=== PATIENT | male | born 1945 | race Caucasian/White ===

== ENCOUNTER 2017-10-04 01:50 | Observation (INO) ==
[2017-10-04] MEDS ORDERED: Sodium Chlor 0.9% Inj 500 ML IV.SIG ONE ×2 (03:01→03:25)
[2017-10-04] MEDS ORDERED: Morphine Inj 4 MG/ML Vial IV.PUSH ONE ×2 (03:01→03:23)
--- NOTE | 2017-10-04 03:04 | ED ---
HPI General Chief Complaint: Chest Pain Stated Complaint: Cardiac Complaint Time Seen by Provider: 10/04/17 02:38 Source: patient Mode of arrival: ambulatory Limitations: no limitations History of Present Illness HPI narrative: 72-year-old male presents to the emergency department by private transportation for complaint of 2 days of retrosternal chest pain that radiates into his neck that is similar to indigestion. Patient states he has had these symptoms before associated with a myocardial infarction and bypass surgery. Patient underwent CABG March 2017. Patient states over the past several nights she has been having intermittent diaphoresis in the past 2 days has had retrosternal chest pain that feels like indigestion 10/10 intensity radiating to his neck with associated episodes of shortness of breath nausea and diaphoresis. Presently patient denies any shortness of breath sweats or nausea however does complain of 10/10 chest pain. Patient takes aspirin daily takes no other blood thinning agents and is on multiple medications for blood pressure management dyslipidemia and antianginal medications. Diabetes as well as antianginal medications. Patient is unable to identify exacerbating or alleviating factors. MD complaint: chest pain Complete Quality Measures for STEMI Alert Patients STEMI Alert: No Onset (ago): day(s) Duration: constant Onset: during rest, during exertion and awoke with symptoms Pain location: substernal Severity: similar to previous episodes Severity scale (1-10): 10 Quality: tightness and other ("indigestion") Pain radiation: neck Relieving factors: nothing Exacerbating factors: nothing Associated symptoms: nausea, diaphoresis and dyspnea Treatments prior to arrival chest pain: none Related Data Home Medications Medication Instructions Recorded Confirmed amlodipine 5 mg PO DAILY 10/04/17 10/04/17 aspirin 81 mg PO DAILY 10/04/17 10/04/17 glimepiride 4 mg PO QAM 10/04/17 10/04/17 lisinopril 40 mg PO DAILY 10/04/17 10/04/17 metformin 1,000 mg PO BID 10/04/17 10/04/17 metoprolol tartrate 50 mg PO BID 10/04/17 10/04/17 Allergies Allergy/AdvReac Type Severity Reaction Status Date / Time No Known Allergies Allergy Verified 10/04/17 02:40 Review of Systems ROS: all other systems reviewed are negative PMFSH History History Provided By: Patient Medical History Medical History Diabetes (Acute) Hernia (Acute) Hypertension (Acute) Neuropathy (Acute) Surgical History Surgical History Hx of CABG (Acute) Social History Social History Second Hand Smoke Exposure: No Smoking Status: Never smoker How Often Do You Have a Drink Containing Alcohol: Never Immunization History Tetanus Immunization: <5 Years Hx Influenza Vaccine This Season: Yes Exam Narrative Exam Narrative: GENERAL: Well-nourished, well-developed patient. No acute distress no respiratory distress SKIN: Focused skin assessment warm/dry. HEAD: Normocephalic. EYES: No scleral icterus. No injection or drainage. NECK: Supple, trachea midline. No JVD or lymphadenopathy. CARDIOVASCULAR: Regular rate and rhythm without murmurs, gallops, or rubs. Bilateral radial and dorsalis pedis pulses 2+ to palpation. RESPIRATORY: Breath sounds equal bilaterally. No accessory muscle use. GASTROINTESTINAL: Abdomen soft, non-tender, nondistended. MUSCULOSKELETAL: No cyanosis, or edema. BACK: Nontender without obvious deformity. No CVA tenderness. Course Initial Documented Vital Signs Temperature 98.2 F 10/04/17 01:53 Pulse Rate 84 10/04/17 01:53 Respiratory Rate 23 10/04/17 01:53 Blood Pressure 199/94 H 10/04/17 01:53 Pulse Oximetry 98 10/04/17 01:53 Last Documented Vital Signs Temperature 98.2 F 10/04/17 02:47 Pulse Rate 84 10/04/17 01:53 Respiratory Rate 18 10/04/17 06:21 Blood Pressure 154/79 H 10/04/17 06:21 Pulse Oximetry 95 10/04/17 05:03 Medical Decision Making MDM Narrative Medical decision making narrative: 72-year-old male with chest pain described as indigestion 10/10 intensity with known history of CAD previous myocardial infarction and CABG over the past 2 days with persistent intermittent pain since midnight; 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 3:20 AM informed by patient's nurse that pain resolved after morphine sulfate 4 mg but then quickly returned; blood pressure heart rate respiratory rate and O2 saturation stable additional dose of morphine administered and Nitropaste 1 inch to chest wall administered CTA thoracic and abdominal aorta ordered At 5:[address] a thoracic and abdominal aorta identifies no dissection or acute process. Patient states after morphine sulfate pain has markedly improved. No referred pain. No shortness of breath or nausea. Nitropaste 1 inch applied to the chest wall patient given Toradol 30 mg IV Protonix 40 mg IV in view of his cardiac history and ongoing chest pain patient may require IV nitroglycerin and therefore not a candidate for chest pain center call with placed to medicine service for admission. Patient's medical records from [facility] have been requested for cardiac catheterization report and CABG report. Differential Diagnosis Differential Diagnosis: Chest pain, ACS, AR, dissection, aneurysm, pancreatitis , biliary colic, PE Medical Records Medical records reviewed: Yes I reviewed the patient's medical records. no prior visit Lab Data Lab results reviewed: Yes I reviewed the patient's lab results. Result diagrams: 10/04/17 02:50 10/04/17 02:50 Lab Results 10/04/17 10/04/17 10/04/17 Range/Units 02:50 02:50 02:50 WBC 7.9 (4.0-11.0) th/mm3 RBC 5.13 (4.50-5.90) mil/mm3 Hgb 16.0 (13.0-17.0) gm/dL Hct 44.4 (39.0-51.0) % MCV 86.5 (80.0-100.0) fL MCH 31.1 (27.0-34.0) pg MCHC 36.0 (32.0-36.0) % RDW 14.2 (11.6-17.2) % Plt Count 146 L (150-450) th/mm3 MPV 7.6 (7.0-11.0) fL Prelim Diff (Auto) Slide review pending Neut % (Auto) 74.6 H (16.0-70.0) % Lymph % (Auto) 13.9 (9.0-44.0) % [place] % (Auto) 7.9 (0.0-8.0) % Eos % (Auto) 2.8 (0.0-4.0) % Baso % (Auto) 0.8 (0.0-2.0) % Neut # (Auto) 5.9 (1.8-7.7) th/mm3 Lymph # (Auto) 1.1 (1.0-4.8) th/mm3 [place] # (Auto) 0.6 (0.0-0.9) th/mm3 Eos # (Auto) 0.2 (0.0-0.4) th/mm3 Baso # (Auto) 0.1 (0.0-0.2) th/mm3 WBC Differential . Diff Scan Auto diff confirmed Differential Comment . PT 11.1 (9.8-11.6) sec INR 1.1 Ratio APTT 25.7 (24.3-30.1) sec Sodium (136-145) meq/L Potassium (3.5-5.1) meq/L Chloride (98-107) meq/L Carbon Dioxide (21.0-32.0) meq/L Anion Gap (5-15) meq/L BUN (7-18) mg/dL Creatinine (0.60-1.30) mg/dL Estimated GFR (>89) mL/min POC Glucose (68-110) mg/dl Random Glucose (74-106) mg/dL Calcium (8.5-10.1) mg/dL Magnesium (1.5-2.5) mg/dL Total Bilirubin (0.2-1.0) mg/dL AST (15-37) U/L ALT (12-78) U/L Alkaline Phosphatase (45-117) U/L Total Creatine Kinase (39-308) U/L Troponin I (0.02-0.05) ng/mL B-Natriuretic Peptide 47 (0-100) pg/mL Total Protein (6.4-8.2) g/dL Albumin (3.4-5.0) g/dL Lipase (73-393) U/L 10/04/17 10/04/17 10/04/17 Range/Units 02:50 05:17 05:40 WBC (4.0-11.0) th/mm3 RBC (4.50-5.90) mil/mm3 Hgb (13.0-17.0) gm/dL Hct (39.0-51.0) % MCV (80.0-100.0) fL MCH (27.0-34.0) pg MCHC (32.0-36.0) % RDW (11.6-17.2) % Plt Count (150-450) th/mm3 MPV (7.0-11.0) fL Prelim Diff (Auto) Neut % (Auto) (16.0-70.0) % Lymph % (Auto) (9.0-44.0) % [place] % (Auto) (0.0-8.0) % Eos % (Auto) (0.0-4.0) % Baso % (Auto) (0.0-2.0) % Neut # (Auto) (1.8-7.7) th/mm3 Lymph # (Auto) (1.0-4.8) th/mm3 [place] # (Auto) (0.0-0.9) th/mm3 Eos # (Auto) (0.0-0.4) th/mm3 Baso # (Auto) (0.0-0.2) th/mm3 WBC Differential Diff Scan Differential Comment PT (9.8-11.6) sec INR Ratio APTT (24.3-30.1) sec Sodium 140 (136-145) meq/L Potassium 3.5 (3.5-5.1) meq/L Chloride 102 (98-107) meq/L Carbon Dioxide 28.0 (21.0-32.0) meq/L Anion Gap 10 (5-15) meq/L BUN 17 (7-18) mg/dL Creatinine 1.32 H (0.60-1.30) mg/dL Estimated GFR 53 L (>89) mL/min POC Glucose 243 H (68-110) mg/dl Random Glucose 206 H (74-106) mg/dL Calcium 9.4 (8.5-10.1) mg/dL Magnesium 2.0 (1.5-2.5) mg/dL Total Bilirubin 2.3 H (0.2-1.0) mg/dL AST 242 H (15-37) U/L ALT 168 H (12-78) U/L Alkaline Phosphatase 122 H (45-117) U/L Total Creatine Kinase 29 L 28 L (39-308) U/L Troponin I Less than 0.02 L Less than 0.02 L (0.02-0.05) ng/mL B-Natriuretic Peptide (0-100) pg/mL Total Protein 6.9 (6.4-8.2) g/dL Albumin 3.5 (3.4-5.0) g/dL Lipase 244 (73-393) U/L Imaging Data Radiologist's impression: Chest X-Ray 10/04/17 02:39 CONCLUSION: Clear lungs. Thoracic Aorta CT 10/04/17 03:23 CONCLUSION: 1. No evidence for aortic dissection or aneurysm. 2. No inflammatory changes are seen in the abdomen or pelvis. 3. Nonobstructing renal calculi, and bilateral renal cysts. ECG Data EKG Prior to Arrival: No Attestation: I personally reviewed and interpreted this ECG as follows: Prior ECG tracings: not available for review Interpretation: EKG: Normal sinus rhythm rate [address] elevation injury pattern nonspecific T-wave abnormality or ectopy noted Discharge Plan Discharge Disposition Patient Disposition: 30 Still Patient Discharge Condition Condition: Stable Discharge Details Diagnosis: Chest pain, H/O ischemic heart disease, Hypertension Physicians Team ED Provider: Maude Son Primary Care Provider: Primary Care Sophie,Joan Attending Provider: Zelda Laws Other Providers: [employer] Status ED Status: Admitted Observation Patient
[2017-10-04 03:10] LABS: Baso # (Auto) 0.1 th/mm3 (0.0-0.2); Baso % (Auto) 0.8 % (0.0-2.0); Eos # (Auto) 0.2 th/mm3 (0.0-0.4); Eos % (Auto) 2.8 % (0.0-4.0); Hematocrit 44.4 % (39.0-51.0); Lymph # (Auto) 1.1 th/mm3 (1.0-4.8); Lymph % (Auto) 13.9 % (9.0-44.0); Mean Corpuscular Hemoglobin 31.1 pg (27.0-34.0); Mean Corpuscular Volume 86.5 fL (80.0-100.0); Mean Platelet Volume 7.6 fL (7.0-11.0); Mono # (Auto) 0.6 th/mm3 (0.0-0.9); Mono % (Auto) 7.9 % (0.0-8.0); Neut # (Auto) 5.9 th/mm3 (1.8-7.7); Neut % (Auto) 74.6 % (16.0-70.0); Platelet Count 146 th/mm3 (150-450); Red Blood Count 5.13 mil/mm3 (4.50-5.90); Red Cell Distribution Width 14.2 % (11.6-17.2); White Blood Count 7.9 th/mm3 (4.0-11.0)
[2017-10-04 03:21] LABS: Activated Partial Thrombo Time 25.7 sec (24.3-30.1); INR 1.1 Ratio; Prothrombin Time 11.1 sec (9.8-11.6)
[2017-10-04 03:28] LABS: Albumin 3.5 g/dL (3.4-5.0); Anion Gap 10 meq/L (5-15); Aspartate Aminotransferase 242 U/L (15-37); Blood Urea Nitrogen 17 mg/dL (7-18); Calcium 9.4 mg/dL (8.5-10.1); Chloride 102 meq/L (98-107); Glomerular Filtration Rate 53 mL/min (>89); Glucose,Random 206 mg/dL (74-106); Lipase 244 U/L (73-393); Potassium 3.5 meq/L (3.5-5.1); Sodium 140 meq/L (136-145)
--- NOTE | 2017-10-04 03:29 | XR ---
EXAM DATE: 10/04/2017 3:06 AM EDT AGE/SEX: 72 years / Male INDICATIONS: Substernal chest pain. CLINICAL DATA: This is the patient's initial encounter. Patient reports that signs and symptoms have been present for 1 day and indicates a pain score of 5/10. MEDICAL/SURGICAL HISTORY: None. CABG. COMPARISON: No prior exams available for comparison. FINDINGS: A single AP view of the chest demonstrates the lungs to be symmetrically aerated without evidence of mass, infiltrate or effusion. Cardiomegaly.. Osseous structures are intact. Sternotomy wires and CA BG markers are noted. CONCLUSION: Clear lungs. Electronically signed by: Buzz Wills MD 10/04/2017 3:28 AM EDT
[2017-10-04 03:33] LABS: Alanine Aminotransferase 168 U/L (12-78); Alkaline Phosphatase 122 U/L (45-117); Total Protein 6.9 g/dL (6.4-8.2)
[2017-10-04 03:35] LABS: Creatine Kinase 29 U/L (39-308)
[2017-10-04] MEDS ORDERED: Pantoprazole Inj 40 MG Vial IV.PUSH ONE (04:50)
--- NOTE | 2017-10-04 04:51 | CT ---
EXAM DATE: 10/04/2017 4:19 AM EDT AGE/SEX: 72 years / Male INDICATIONS: Chest pain. CLINICAL DATA: This is the patient's initial encounter. Patient reports that signs and symptoms have been present for 1 day and indicates a pain score of 10/10. MEDICAL/SURGICAL HISTORY: Cardiovascular disease. Hypertension. Diabetes mellitus type II. CABG. RADIATION DOSE: 20.52 CTDI (mGy) COMPARISON: No prior exams available for comparison. TECHNIQUE: Volumetric scanning was performed using a multi-row detector CT scanner during bolus infu lonny of 90 ml Omnipaque 350 (iohexol) nonionic water-soluble contrast as a single exam dose. The da ta was post processed with a variety of visualization algorithms including full volume maximum intens ity projection, multi-planar sliding thin slab reformation, curved planar reformation, and surface re ndering techniques. Using automated exposure control and adjustment of the mA and/or kV according to patient size, radiation dose was kept as low as reasonably achievable to obtain optimal diagnostic q uality images. DICOM format image data is available electronically for review and comparison. FINDINGS: The patient has had previous CABG. There is no evidence for aortic dissection or aneurysm. Calcified left posterior mediastinal lymph nodes and calcified granulomas are noted in the spleen. There is no evidence for dissection of the aorta in the abdomen. The lungs are clear. Calcified subcarinal and le ft infrahilar lymph nodes are identified. The lungs are clear. Renal arteries, celiac, superior mesen teric and inferior mesenteric arteries are widely patent. Iliac vasculature widely patent. Urinary bl adder is unremarkable. Small bowel, large bowel and appendix are normal. No adenopathy. The prostate is prominent in size with evidence of previous TURP procedure. Measures 5.2 cm in transverse dimensio n. There are bilateral cysts, and nonobstructing calculi right lower pole kidney measuring up to 5.3 mm, right upper pole 5.6 cm cyst, numerous left renal cysts measuring up to 3.1 cm, and nonobstructin g left renal calculi measuring up to 8.3 mm at the lower pole, and 6.7 mm at the upper pole. Liver, p ancreas, gallbladder, adrenals are unremarkable. CONCLUSION: 1. No evidence for aortic dissection or aneurysm. 2. No inflammatory changes are seen in the abdomen or pelvis. 3. Nonobstructing renal calculi, and bilateral renal cysts. Electronically signed by: Buzz Wills MD 10/04/2017 4:50 AM EDT
[2017-10-04] MEDS ORDERED: Ketorolac Inj 30 MG/ML (IVP) Vial IV.PUSH ONE (05:18)
[2017-10-04] MEDS ORDERED: Morphine Inj 4 MG/ML Vial IV.PUSH PRN (05:50)
[2017-10-04] MEDS ORDERED: Metoprolol Inj 5 MG/5 ML Vial IV.PUSH ONE (05:54)
[2017-10-04] MEDS ORDERED: Aluminum/Magnesium/Simethacone Susp 30 ML UDC PO ONE (05:54)
[2017-10-04] MEDS ORDERED: Dextrose 50% in Water 50 ML Vial IV.PUSH PRN (05:54)
[2017-10-04 06:38] LABS: Creatine Kinase 28 U/L (39-308)
[2017-10-04] MEDS: Insulin NovoLOG Aspart Correctional Sugar Inj SQ SCH ×4 (08:07→21:01)
[2017-10-04] MEDS: Metoprolol Tartrate 50 MG Tablet PO SCH ×2 (08:09→21:01)
[2017-10-04] MEDS: Lisinopril 20 MG Tablet PO SCH (08:09)
[2017-10-04] MEDS: amLODIPine 5 MG Tablet PO SCH (08:09)
[2017-10-04 11:15] LABS: Creatine Kinase 26 U/L (39-308)
[2017-10-04 12:45] LABS: Creatine Kinase 29 U/L (39-308)
[2017-10-04] MEDS ORDERED: Regadenoson Inj 0.4 MG/5 ML Syringe IV.PUSH ONE (15:08)
--- NOTE | 2017-10-04 15:45 | P.HP ---
History of Present Illness Primary Care Physician: No Primary Care Physician History of Present Illness: 72-year-old male presents to the emergency department by private transportation for complaint of 2 days of retrosternal chest pain that radiates into his neck that is similar to indigestion. Patient states he has had these symptoms before associated with a myocardial infarction and bypass surgery. Patient underwent CABG March 2017. Patient states over the past several nights she has been having intermittent diaphoresis in the past 2 days has had retrosternal chest pain that feels like indigestion 10/10 intensity radiating to his neck with associated episodes of shortness of breath nausea and diaphoresis. Presently patient denies any shortness of breath sweats or nausea however does complain of 10/10 chest pain. Patient takes aspirin daily takes no other blood thinning agents and is on multiple medications for blood pressure management dyslipidemia and antianginal medications. Diabetes as well as antianginal medications. Patient is unable to identify exacerbating or alleviating factors. Says symptoms are similar when he had CABG. Review of Systems All other systems reviewed negative except as stated in HPI PMFSH - History History Provided By: Patient - Medical History Medical History: Medical History (Last Reviewed 10/04/17 @ 15:41 by Alisson Suarez MD) Diabetes Hernia Hypertension Neuropathy - Surgical History Surgical History: Surgical History (Last Reviewed 10/04/17 @ 15:41 by Alisson Suarez MD) Hx of CABG - Family History Family History: Family History (Last Updated 10/04/17 @ 18:01 by Alisson Suarez MD) Mother Cancer Father CAD (coronary artery disease) Other Stroke - Tobacco History Second Hand Smoke Exposure: No Tobacco Use In Past 30 Days: No Smoking Status: Never smoker - Alcohol History How Often Do You Have a Drink Containing Alcohol: Never - Immunization History Tetanus Immunization: <5 Years Hx Influenza Vaccine This Season: Yes Medications and Allergies Active Medications: Active Medications Amlodipine Besylate (Norvasc) 5 mg PO DAILY [facility] Last Admin: 10/04/17 08:09 Dose: 5 mg Aspirin (Ecotrin) 325 mg PO DAILY [facility] Last Admin: 10/04/17 08:09 Dose: 325 mg Dextrose (D50w Vial) 50 ml IV.PUSH UNSCH PRN PRN Reason: PER HYPOGLYCEMIA PROTOCOL Glucagon (Glucagon Inj) 1 mg OTHER PRN PRN PRN Reason: for Hypoglycemia Protocol Insulin Aspart (Novolog Insulin Correctional Sugar Inj) 0 unit SQ ACHS AND 3AM ELIAZAR; Protocol Last Admin: 10/04/17 12:37 Dose: Not Given Lisinopril (Prinivil) 40 mg PO DAILY [facility] Last Admin: 10/04/17 08:09 Dose: 40 mg Metoprolol Tartrate (Lopressor) 50 mg PO BID [facility] Last Admin: 10/04/17 08:09 Dose: 50 mg Morphine Sulfate (Morphine Inj) 2 mg IV.PUSH Q30M PRN PRN Reason: CHEST PAIN Nitroglycerin (Nitro-Bid 2% Oint) 1 inch TOPICAL Q6HR [facility] Last Admin: 10/04/17 12:32 Dose: 1 inch Sodium Chloride (Ns Inj) 2 ml IV.FLUSH BID [facility] Last Admin: 10/04/17 08:13 Dose: 2 ml Sodium Chloride (Ns Inj) 2 ml IV.FLUSH UNSCH PRN PRN Reason: FLUSH AFTER USING IV ACCESS Allergies Allergy/AdvReac Type Severity Reaction Status Date / Time No Known Allergies Allergy Verified 10/04/17 02:40 Home Medications Medication Instructions Recorded Confirmed Type amlodipine 5 mg PO DAILY 10/04/17 10/04/17 History aspirin 81 mg PO DAILY 10/04/17 10/04/17 History glimepiride 4 mg PO QAM 10/04/17 10/04/17 History lisinopril 40 mg PO DAILY 10/04/17 10/04/17 History metformin 1,000 mg PO BID 10/04/17 10/04/17 History metoprolol tartrate 50 mg PO BID 10/04/17 10/04/17 History Exam Vital signs: Vital Signs 10/04/17 01:53 10/04/17 01:56 10/04/17 02:47 Temperature 98.2 F 98.2 F Pulse Rate 84 Respiratory Rate 23 16 16 Blood Pressure 199/94 H 180/103 H 180/103 H Blood Pressure [Left Arm] Blood Pressure [Right Arm] Pulse Oximetry 98 98 96 10/04/17 02:54 10/04/17 03:00 10/04/17 03:08 Temperature Pulse Rate Respiratory Rate 18 18 Blood Pressure 135/80 111/62 Blood Pressure [Left Arm] Blood Pressure [Right Arm] Pulse Oximetry 96 96 96 10/04/17 03:24 10/04/17 05:03 10/04/17 06:21 Temperature Pulse Rate Respiratory Rate 16 16 18 Blood Pressure 145/86 H 154/79 H Blood Pressure [Left Arm] 161/85 H Blood Pressure [Right Arm] 192/97 H Pulse Oximetry 95 95 10/04/17 06:55 10/04/17 07:30 10/04/17 09:00 Temperature 97.8 F Pulse Rate 90 89 82 Respiratory Rate 16 20 16 Blood Pressure 152/84 H 150/81 H 145/82 H Blood Pressure [Left Arm] Blood Pressure [Right Arm] Pulse Oximetry 94 L 98 10/04/17 10:00 10/04/17 11:28 10/04/17 13:11 Temperature Pulse Rate 69 69 69 Respiratory Rate 17 16 Blood Pressure 158/84 H 131/74 Blood Pressure [Left Arm] Blood Pressure [Right Arm] Pulse Oximetry 99 10/04/17 13:12 10/04/17 14:02 Temperature 98.2 F Pulse Rate 84 69 Respiratory Rate 20 Blood Pressure 148/87 H Blood Pressure [Left Arm] Blood Pressure [Right Arm] Pulse Oximetry 95 Intake & Output 10/03/17 10/04/17 10/04/17 18:59 06:59 18:59 Intake Total 500 / 500 Balance 500 / 500 Weight 95.254 kg Intake: IV 500 / 500 NS Inj 500 ML @ Wide Open IV. 500 / 500 SIG BOLUS ONE Rx#:[id number] Other: Date of Last Bowel Movement 10/03/17 Narrative: GENERAL: 72 yo male, appears in nad. SKIN: Warm and dry. HEAD: Atraumatic. Normocephalic. EYES: Pupils equal and round. No scleral icterus. No injection or drainage. ENT: No nasal bleeding or discharge. Mucous membranes pink and moist. NECK: Trachea midline. No JVD. CARDIOVASCULAR: Regular rate and rhythm. RESPIRATORY: No accessory muscle use. Clear to auscultation. Breath sounds equal bilaterally. GASTROINTESTINAL: Abdomen soft, non-tender, nondistended. Hepatic and splenic margins not palpable. MUSCULOSKELETAL: Extremities without clubbing, cyanosis, or edema. No obvious deformities. NEUROLOGICAL: Awake and alert. No obvious cranial nerve deficits. Motor grossly within normal limits. Five out of 5 muscle strength in the arms and legs. Normal speech. PSYCHIATRIC: Appropriate mood and affect; insight and judgment normal. Results - Labs CBC & Chem 7: 10/04/17 02:50 10/04/17 02:50 Labs: Laboratory Results - last 24 hr 10/04/17 10/04/17 10/04/17 02:50 02:50 02:50 WBC 7.9 RBC 5.13 Hgb 16.0 Hct 44.4 MCV 86.5 MCH 31.1 MCHC 36.0 RDW 14.2 Plt Count 146 L MPV 7.6 Prelim Diff (Auto) Slide review pending Neut % (Auto) 74.6 H Lymph % (Auto) 13.9 [place] % (Auto) 7.9 Eos % (Auto) 2.8 Baso % (Auto) 0.8 Neut # (Auto) 5.9 Lymph # (Auto) 1.1 [place] # (Auto) 0.6 Eos # (Auto) 0.2 Baso # (Auto) 0.1 WBC Differential . Diff Scan Auto diff confirmed Differential Comment . PT 11.1 INR 1.1 APTT 25.7 Sodium Potassium Chloride Carbon Dioxide Anion Gap BUN Creatinine Estimated GFR POC Glucose Random Glucose Calcium Magnesium Total Bilirubin AST ALT Alkaline Phosphatase Total Creatine Kinase Troponin I B-Natriuretic Peptide 47 Total Protein Albumin Lipase 10/04/17 10/04/17 10/04/17 02:50 05:17 05:40 WBC RBC Hgb Hct MCV MCH MCHC RDW Plt Count MPV Prelim Diff (Auto) Neut % (Auto) Lymph % (Auto) [place] % (Auto) Eos % (Auto) Baso % (Auto) Neut # (Auto) Lymph # (Auto) [place] # (Auto) Eos # (Auto) Baso # (Auto) WBC Differential Diff Scan Differential Comment PT INR APTT Sodium 140 Potassium 3.5 Chloride 102 Carbon Dioxide 28.0 Anion Gap 10 BUN 17 Creatinine 1.32 H Estimated GFR 53 L POC Glucose 243 H Random Glucose 206 H Calcium 9.4 Magnesium 2.0 Total Bilirubin 2.3 H AST 242 H ALT 168 H Alkaline Phosphatase 122 H Total Creatine Kinase 29 L 28 L Troponin I Less than 0.02 L Less than 0.02 L B-Natriuretic Peptide Total Protein 6.9 Albumin 3.5 Lipase 244 10/04/17 10/04/17 10/04/17 07:32 09:40 11:27 WBC RBC Hgb Hct MCV MCH MCHC RDW Plt Count MPV Prelim Diff (Auto) Neut % (Auto) Lymph % (Auto) [place] % (Auto) Eos % (Auto) Baso % (Auto) Neut # (Auto) Lymph # (Auto) [place] # (Auto) Eos # (Auto) Baso # (Auto) WBC Differential Diff Scan Differential Comment PT INR APTT Sodium Potassium Chloride Carbon Dioxide Anion Gap BUN Creatinine Estimated GFR POC Glucose 206 H 171 H Random Glucose Calcium Magnesium Total Bilirubin AST ALT Alkaline Phosphatase Total Creatine Kinase 26 L Troponin I Less than 0.02 L B-Natriuretic Peptide Total Protein Albumin Lipase 10/04/17 11:31 WBC RBC Hgb Hct MCV MCH MCHC RDW Plt Count MPV Prelim Diff (Auto) Neut % (Auto) Lymph % (Auto) [place] % (Auto) Eos % (Auto) Baso % (Auto) Neut # (Auto) Lymph # (Auto) [place] # (Auto) Eos # (Auto) Baso # (Auto) WBC Differential Diff Scan Differential Comment PT INR APTT Sodium Potassium Chloride Carbon Dioxide Anion Gap BUN Creatinine Estimated GFR POC Glucose Random Glucose Calcium Magnesium Total Bilirubin AST ALT Alkaline Phosphatase Total Creatine Kinase 29 L Troponin I Less than 0.02 L B-Natriuretic Peptide Total Protein Albumin Lipase - Imaging Impressions Chest X-Ray 10/04/17 02:39 CONCLUSION: Clear lungs. Thoracic Aorta CT 10/04/17 03:23 CONCLUSION: 1. No evidence for aortic dissection or aneurysm. 2. No inflammatory changes are seen in the abdomen or pelvis. 3. Nonobstructing renal calculi, and bilateral renal cysts. Caprini VTE Risk Assessment Caprini VTE Risk Assessment: Moderate/High Risk (score >= 2) Caprini Risk Assessment Model: Point Value = 1 Point Value = 2 Point Value = 3 Point Value = 5 Age 41-60 Minor surgery BMI > 25 kg/m2 Swollen legs Varicose veins or History of unexplained or recurrent spontaneous Oral contraceptives or hormone replacement Sepsis (< 1 month) Serious lung disease, including pneumonia (< 1 month) Abnormal pulmonary function Acute myocardial infarction Congestive heart failure (< 1 month) History of inflammatory bowel disease Medical patient at bed rest Age 61-74 Arthroscopic surgery Major open surgery (> 45 min) Laparoscopic surgery (> 45 min) Malignancy Confined to bed (> 72 hours) Immobilizing plaster cast Central venous access Age >= 75 History of VTE Family history of VTE Factor V Leiden Prothrombin [id number] Lupus anticoagulant Anticardiolipin antibodies Elevated serum homocysteine Heparin-induced thrombocytopenia Other congenital or acquired thrombophilia Stroke (< 1 month) Elective arthroplasty Hip, pelvis, or leg fracture Acute spinal cord injury (< 1 month) Prophylaxis Regimen: Total Risk Factor Score Risk Level Prophylaxis Regimen 0-1 Low Early ambulation 2 Moderate Order ONE of the following: *Sequential Compression Device (SCD) *Heparin 5000 units SQ BID 3-4 Higher Order ONE of the following medications: *Heparin 5000 units SQ TID *Enoxaparin/Lovenox 40 mg SQ daily (WT < 150 kg, CrCl > 30 mL/min) *Enoxaparin/Lovenox 30 mg SQ daily (WT < 150 kg, CrCl > 10-29 mL/min) *Enoxaparin/Lovenox 30 mg SQ BID (WT < 150 kg, CrCl > 30 mL/min) AND/OR *Sequential Compression Device (SCD) 5 or more Highest Order ONE of the following medications: *Heparin 5000 units SQ TID (Preferred with Epidurals) *Enoxaparin/Lovenox 40 mg SQ daily (WT < 150 kg, CrCl > 30 mL/min) *Enoxaparin/Lovenox 30 mg SQ daily (WT < 150 kg, CrCl > 10-29 mL/min) *Enoxaparin/Lovenox 30 mg SQ BID (WT < 150 kg, CrCl > 30 mL/min) AND *Sequential Compression Device (SCD) Assessment and Plan - Plan 72-year-old male presented to ED for eval of chest pain described as indigestion 10/10 intensity. Patient has a known history of CAD previous myocardial infarction and CABG over the past 2 days with persistent intermittent pain since midnight; patient placed on cardiac exercise specialist with continuous pulse oximetry IV access obtain EKG performed shows sinus rhythm no acute ST elevation or injury pattern or ectopy; patient administered aspirin 162 mg by mouth as well as sublingual nitroglycerin ordered every 5 minutes; 0.4 mg to be administered for chest pain or blood pressure at rest and to hold for chest pain-free or 100 mmHg systolic. Chest pain with h/o CAD , previous PR and CABG ASA Received morphine Started on Nitropaste 1 inch CTA thoracic and abdominal aorta ordered reviewed no dissection or acute process. Medical records from [facility] have been requested for cardiac catheterization report and CABG report. Plan for stress test Transaminitis Patient denies EtOH use Will repeat labs tomorrow CT A/P no acute findings Will trend LFTs levels tomorrow. consider GI consult DM2 accuchecks , ISS Restart home meds as appropriate Discussed with family at bedside, the nurse, Dr. Reynoso cardiology.
--- NOTE | 2017-10-04 15:58 | ECG ---
Date Performed: 10/04/2017 Time Performed: 11:23:56 PTAGE: 72 years EKG: Sinus rhythm NONSPECIFIC T-WAVE ABNORMALITY BORDERLINE ECG PREVIOUS TRACING : 10/04/2017 05.50 Since the previous tracing, no significant change noted DOCTOR: Jayla Naranjo Interpretating Date/Time 10/04/2017 15:56:45
--- NOTE | 2017-10-04 16:31 | NM ---
EXAM DATE: 10/04/2017 3:58 PM EDT AGE/SEX: 72 years / Male INDICATIONS:Coronary artery bypass graft. . Substernal chest pain with dyspnea. CLINICAL DATA: This is the patient's subsequent encounter. Patient reports that signs and symptoms h ave been present for 1 day and indicates a pain score of 10/10. MEDICAL/SURGICAL HISTORY: Diabetes. Hypertension. History of hernia and neuropathy. CABG. COMPARISON: No prior exams available for comparison. DOSE: 10 mCi Tc 99m Myoview at rest 30 mCi [id number] at stress 0.4 mg Lexiscan STRESS SYMPTOMS: Dyspnea. EJECTION FRACTION: 68 % TECHNIQUE: The patient underwent pharmacologic stress with infusion of prescribed dose. Continuous ECG tracing was monitored during stress. Gated SPECT imaging was performed after stress and conventi onal SPECT imaging was performed at rest. The examination was performed on a SPECT/CT scanner, both attenuation and non-corrected datasets were reviewed. FINDINGS: Distribution: The maximum perfused segment at stress is in the anterior wall. Perfusion Study: The pattern of perfusion at stress is within normal limits. There is a summed stre ss score of 0. Gated Study: There are intact wall motion and wall thickening without hypokinetic or dyskinetic segm ents. The ejection fraction is calculated at 68%. RISK CATEGORY: Low (<1% Annual Motality Rate) CONCLUSION: 1. No fixed or reversible wall defect to suggest ischemia or infarction. 2. Normal wall motion and calculated ejection fraction. Electronically signed by: Mikey Witt MD 10/04/2017 4:30 PM EDT
--- NOTE | 2017-10-04 16:51 | MB ---
cc: Santi Reynoso DO DATE: 10/04/2017 REASON FOR CONSULTATION: Chest pain. HISTORY OF PRESENT ILLNESS: Ignacio Lewis is a pleasant 72-year-old male who was scheduled to see me in the office for the first time next week, but presented to [facility] Emergency Room due to chest pain. He previously was up in [place] in February and started having chest pain, which was different than what brought him into the hospital this time. At that time, he felt like a man with stepping on his chest and underwent stress testing, eventual catheterization and then CABG x 4 in February 2017. Afterwards, he had difficulty with the extensive incision for a vein harvest and underwent skin grafting for this. He has since moved down here with his daughter and has been doing relatively well. Over the past several nights, he has had intermittent diaphoresis as well as a pain in his lower sternum and into the epigastric area. He states that some of the pain comes out of her shoulders and down across his chest. The pain is different than what originally brought him in when he needed his bypass. On arrival, EKG shows no significant changes and troponins are negative. In seeing him, he is currently hemodynamically stable without chest pain or shortness of breath. PAST MEDICAL HISTORY: 1. Coronary artery disease. 2. Diabetes. 3. Hernia. 4. Hypertension. 5. Neuropathy. PAST SURGICAL HISTORY: 1. CABG x 4 (02/2017) with unknown coronary anatomy. 2. Skin grafting of lower extremity venous harvest sites. ALLERGIES: NO KNOWN DRUG ALLERGIES. MEDICATIONS: 1. Aspirin 81 mg daily. 2. Norvasc 5 mg daily. 3. Metoprolol tartrate 50 mg b.i.d. 4. Glimepiride 4 mg every morning. 5. Metformin 1000 mg b.i.d. 6. Aspirin 81 mg daily. 7. Lisinopril 40 mg daily. FAMILY HISTORY: Denies premature coronary artery disease or sudden cardiac within the family. SOCIAL HISTORY: Denies tobacco, alcohol or drug abuse. REVIEW OF SYSTEMS: Fourteen systems were reviewed including osteopathic. Pertinent positives and negatives above, otherwise negative. PHYSICAL EXAMINATION: VITAL SIGNS: Temperature 98.2, heart rate 84, blood pressure 148/87, respirations 20, pulse oximetry 95% on room air. GENERAL: The patient appears well, in no acute distress. Alert, awake, and oriented x 3. HEENT: Extraocular muscles intact. Mucous membranes moist. NECK: Supple. No JVD at 45 degrees. No carotid bruits heard bilaterally. Carotid upstroke is brisk in nature. HEART: Regular rate and rhythm. Positive first and second heart sounds are noted. No murmurs, gallops or rubs. CHEST: Mediastinal sternotomy showing well healing with no problems. LUNGS: Clear to auscultation bilaterally. No wheezes, rales or rhonchi. ABDOMEN: Soft, nontender, nondistended, no organomegaly noted. EXTREMITIES: Show no clubbing, cyanosis or edema. Bilateral lower extremities with mild keloid formation as well as skin grafting of the distal endovascular harvest site. NEUROLOGIC: No focal deficits. SKIN: Warm, dry and intact. OSTEOPATHIC: No kyphoscoliosis, lordosis or paraspinal tender points. LABORATORY DATA: Hemoglobin 16.0, hematocrit 44.4, platelets 146. Potassium 3.5, BUN 17, creatinine 1.32. Troponins negative x 4. Electrocardiogram (10/04/2017 at 11:23): Sinus rhythm, nonspecific ST-T wave changes. IMPRESSIONS: 1. Atypical chest pain. 2. History of coronary artery disease with coronary artery bypass grafting x 4 and unknown coronary anatomy. 2. Diabetes mellitus. 3. Hypertension. 4. Possible acute kidney injury versus chronic kidney disease. 5. Transaminitis. RECOMMENDATIONS: 1. Mr. Lewis presented with possible chest pain and because of this, he will be recommended pharmacologic nuclear stress testing. 2. We will check a 2-D echo to look at his overall left ventricular function, cardiac structure and possible valvulopathies. 3. If workup is not specific for anything, I would then work him up from a GI standpoint, whether that be inpatient or outpatient at your discretion. 4. Further recommendations will be made based on the hospital course. Thank you for allowing me to see Ignacio Lewis. If there are any questions, please do not hesitate to call. Santi Reynoso, VGP/KD , 04:22 PM , 04:38 PM
[2017-10-04] MEDS ORDERED: Acetaminophen 325 MG Tablet PO PRN (17:07)
[2017-10-04] MEDS ORDERED: hydrALAZINE 10 MG Tablet PO PRN (17:09)
--- NOTE | 2017-10-04 22:01 | ECG ---
Date Performed: 10/04/2017 Time Performed: 17:13:32 PTAGE: 72 years EKG: Sinus rhythm Possible septal infarct - age undetermined Abnormal ECG PREVIOUS TRACING : 10/04/2017 11.23 Since the previous tracing, no significant change noted DOCTOR: Jayla Naranjo Interpretating Date/Time 10/04/2017 21:59:58
--- NOTE | 2017-10-04 22:11 | ECG ---
Date Performed: 10/04/2017 Time Performed: 05:50:02 PTAGE: 72 years EKG: Sinus rhythm NONSPECIFIC T-WAVE ABNORMALITY BORDERLINE ECG NO PREVIOUS TRACING DOCTOR: Grady Siegel Interpretating Date/Time 10/04/2017 22:09:28
--- NOTE | 2017-10-04 22:14 | ECG ---
Date Performed: 10/04/2017 Time Performed: 02:02:34 PTAGE: 72 years EKG: Sinus rhythm LOW QRS VOLTAGE IN PRECORDIAL LEADS NONSPECIFIC T-WAVE ABNORMALITY BORDERLINE ECG NO PREVIOUS TRACING DOCTOR: Grady Siegel Interpretating Date/Time 10/04/2017 22:11:14
[2017-10-05] MEDS: Insulin NovoLOG Aspart Correctional Sugar Inj SQ SCH ×3 (04:36→12:22)
[2017-10-05 04:41] LABS: Baso # (Auto) 0.1 th/mm3 (0.0-0.2); Baso % (Auto) 0.9 % (0.0-2.0); Eos # (Auto) 0.3 th/mm3 (0.0-0.4); Eos % (Auto) 4.1 % (0.0-4.0); Hematocrit 42.6 % (39.0-51.0); Hemoglobin 14.8 gm/dL (13.0-17.0); Lymph # (Auto) 1.6 th/mm3 (1.0-4.8); Lymph % (Auto) 20.8 % (9.0-44.0); Mean Corpuscular HGB Conc 34.8 % (32.0-36.0); Mean Corpuscular Hemoglobin 30.9 pg (27.0-34.0); Mean Corpuscular Volume 88.8 fL (80.0-100.0); Mean Platelet Volume 7.6 fL (7.0-11.0); Mono # (Auto) 0.6 th/mm3 (0.0-0.9); Mono % (Auto) 7.6 % (0.0-8.0); Neut % (Auto) 66.6 % (16.0-70.0); Platelet Count 122 th/mm3 (150-450); Red Cell Distribution Width 14.6 % (11.6-17.2); White Blood Count 7.5 th/mm3 (4.0-11.0)
[2017-10-05 05:14] LABS: Alanine Aminotransferase 176 U/L (12-78); Albumin 3.1 g/dL (3.4-5.0); Anion Gap 8 meq/L (5-15); Aspartate Aminotransferase 76 U/L (15-37); Blood Urea Nitrogen 15 mg/dL (7-18); Calcium 8.7 mg/dL (8.5-10.1); Carbon Dioxide 27.1 meq/L (21.0-32.0); Chloride 104 meq/L (98-107); Glomerular Filtration Rate 54 mL/min (>89); Glucose,Random 147 mg/dL (74-106); Potassium 3.4 meq/L (3.5-5.1); Sodium 139 meq/L (136-145)
[2017-10-05 05:17] LABS: Alkaline Phosphatase 112 U/L (45-117); Total Protein 5.9 g/dL (6.4-8.2)
--- NOTE | 2017-10-05 07:32 | P.PN ---
Physical Exam Vital signs: Vital Signs 10/04/17 09:00 10/04/17 10:00 10/04/17 11:28 Temperature Pulse Rate 82 69 69 Respiratory Rate 16 17 16 Blood Pressure 145/82 H 158/84 H 131/74 Pulse Oximetry 99 10/04/17 13:11 10/04/17 13:12 10/04/17 14:02 Temperature 98.2 F Pulse Rate 69 84 69 Respiratory Rate 20 Blood Pressure 148/87 H Pulse Oximetry 95 10/04/17 16:00 10/04/17 17:00 10/04/17 18:00 Temperature 98.6 F Pulse Rate 85 71 80 Respiratory Rate 20 Blood Pressure 155/81 H Pulse Oximetry 96 10/04/17 19:00 10/04/17 20:00 10/04/17 21:00 Temperature 97.8 F Pulse Rate 78 73 80 Respiratory Rate 20 Blood Pressure 136/76 Pulse Oximetry 98 10/04/17 22:00 10/04/17 23:00 10/05/17 00:00 Temperature 97.9 F Pulse Rate 66 65 66 Respiratory Rate 16 Blood Pressure 129/73 Pulse Oximetry 97 10/05/17 01:00 10/05/17 02:00 10/05/17 03:00 Temperature Pulse Rate 68 66 64 Respiratory Rate Blood Pressure Pulse Oximetry 10/05/17 04:00 10/05/17 05:00 10/05/17 06:00 Temperature 98.4 F Pulse Rate 68 68 72 Respiratory Rate 12 Blood Pressure 145/73 H Pulse Oximetry 97 Intake & Output 10/04/17 10/05/17 10/05/17 18:59 06:59 18:59 Intake Total 480 / 480 480 / 480 Output Total 300 / 300 0 / 0 Balance 180 / 180 480 / 480 Weight 96 kg Intake: Oral 480 / 480 480 / 480 Output: Urine 300 / 300 Stool 0 / 0 Other: # Voids 1 3 Date of Last Bowel Movement 10/03/17 # Bowel Movements 0 Narrative: Subjective In bed appears in nad. Says he has no more pain in his chest LFT improving patient says he has a follow up visit on Monday with the GI with [facility]. Patient had a normal nuc test Cleared by cardiology for DC To follow up as oP with GI and also with cardio Physical exam GENERAL: 72 yo male, appears in nad. CARDIOVASCULAR: Regular rate and rhythm. RESPIRATORY: No accessory muscle use. Clear to auscultation. Breath sounds equal bilaterally. GASTROINTESTINAL: Abdomen soft, non-tender, nondistended. Hepatic and splenic margins not palpable. MUSCULOSKELETAL: Extremities without clubbing, cyanosis, or edema. No obvious deformities. NEUROLOGICAL: Awake and alert. No obvious cranial nerve deficits. Motor grossly within normal limits. Five out of 5 muscle strength in the arms and legs. Normal speech. PSYCHIATRIC: Appropriate mood and affect; insight and judgment normal. Assessment and Plan 72-year-old male presented to ED for eval of chest pain described as indigestion 10/10 intensity. Patient has a known history of CAD previous myocardial infarction and CABG over the past 2 days with persistent intermittent pain since midnight; patient placed on hospital monitor with continuous pulse oximetry IV access obtain EKG performed shows sinus rhythm no acute ST elevation or injury pattern or ectopy; patient administered aspirin 162 mg by mouth as well as sublingual nitroglycerin ordered every 5 minutes; 0.4 mg to be administered for chest pain or blood pressure at rest and to hold for chest pain-free or 100 mmHg systolic. Chest pain with h/o CAD, previous SC and CABG ASA Received morphine Started on Nitropaste 1 inch CTA thoracic and abdominal aorta ordered reviewed no dissection or acute process. Medical records from [facility] have been requested for cardiac catheterization report and CABG report. Plan for stress test Transaminitis Patient denies EtOH use Will repeat labs tomorrow CT A/P no acute findings Repeat LFTs improved. Patient to follow up with GI as OP DM2 accuchecks , ISS Restart home meds as appropriate Discussed with family at bedside, the nurse, Dr. Reynoso cardiology. Results - Labs CBC & Chem 7: 10/05/17 04:01 10/05/17 04:01 Laboratory Results - last 24 hr 10/04/17 10/04/17 10/04/17 07:32 09:40 11:27 WBC RBC Hgb Hct MCV MCH MCHC RDW Plt Count MPV Neut % (Auto) Lymph % (Auto) [place] % (Auto) Eos % (Auto) Baso % (Auto) Neut # (Auto) Lymph # (Auto) [place] # (Auto) Eos # (Auto) Baso # (Auto) WBC Differential Differential Comment Sodium Potassium Chloride Carbon Dioxide Anion Gap BUN Creatinine Estimated GFR POC Glucose 206 H 171 H Random Glucose Calcium Total Bilirubin AST ALT Alkaline Phosphatase Total Creatine Kinase 26 L Troponin I Less than 0.02 L Total Protein Albumin 10/04/17 10/04/17 10/04/17 11:31 16:46 20:55 WBC RBC Hgb Hct MCV MCH MCHC RDW Plt Count MPV Neut % (Auto) Lymph % (Auto) [place] % (Auto) Eos % (Auto) Baso % (Auto) Neut # (Auto) Lymph # (Auto) [place] # (Auto) Eos # (Auto) Baso # (Auto) WBC Differential Differential Comment Sodium Potassium Chloride Carbon Dioxide Anion Gap BUN Creatinine Estimated GFR POC Glucose 186 H 250 H Random Glucose Calcium Total Bilirubin AST ALT Alkaline Phosphatase Total Creatine Kinase 29 L Troponin I Less than 0.02 L Total Protein Albumin 10/05/17 10/05/17 04:01 04:01 WBC 7.5 RBC 4.80 Hgb 14.8 Hct 42.6 MCV 88.8 MCH 30.9 MCHC 34.8 RDW 14.6 Plt Count 122 L MPV 7.6 Neut % (Auto) 66.6 Lymph % (Auto) 20.8 [place] % (Auto) 7.6 Eos % (Auto) 4.1 H Baso % (Auto) 0.9 Neut # (Auto) 5.0 Lymph # (Auto) 1.6 [place] # (Auto) 0.6 Eos # (Auto) 0.3 Baso # (Auto) 0.1 WBC Differential . Differential Comment Auto diff final Sodium 139 Potassium 3.4 L Chloride 104 Carbon Dioxide 27.1 Anion Gap 8 BUN 15 Creatinine 1.30 Estimated GFR 54 L POC Glucose Random Glucose 147 H Calcium 8.7 Total Bilirubin 0.7 AST 76 H ALT 176 H Alkaline Phosphatase 112 Total Creatine Kinase Troponin I Total Protein 5.9 L D Albumin 3.1 L - Imaging Impressions Myocardial Perfusion Scan Nuc Med 10/04/17 00:00 CONCLUSION: 1. No fixed or reversible wall defect to suggest ischemia or infarction. 2. Normal wall motion and calculated ejection fraction. Assessment and Plan - Plan 72-year-old male presented to ED for eval of chest pain described as indigestion 10/10 intensity. Patient has a known history of CAD previous myocardial infarction and CABG over the past 2 days with persistent intermittent pain since midnight; patient placed on hospital monitor with continuous pulse oximetry IV access obtain EKG performed shows sinus rhythm no acute ST elevation or injury pattern or ectopy; patient administered aspirin 162 mg by mouth as well as sublingual nitroglycerin ordered every 5 minutes; 0.4 mg to be administered for chest pain or blood pressure at rest and to hold for chest pain-free or 100 mmHg systolic. Chest pain with h/o CAD , previous SC and CABG ASA Received morphine Started on Nitropaste 1 inch CTA thoracic and abdominal aorta ordered reviewed no dissection or acute process. Medical records from [facility] have been requested for cardiac catheterization report and CABG report. Plan for stress test Transaminitis Patient denies EtOH use Will repeat labs tomorrow CT A/P no acute findings Will trend LFTs levels tomorrow. consider GI consult DM2 accuchecks , ISS Restart home meds as appropriate Discussed with family at bedside, the nurse, Dr. Reynoso cardiology.
[2017-10-05] MEDS: amLODIPine 5 MG Tablet PO SCH (08:45)
[2017-10-05] MEDS: Metoprolol Tartrate 50 MG Tablet PO SCH (08:45)
[2017-10-05] MEDS: Lisinopril 20 MG Tablet PO SCH (08:46)
[2017-10-05 09:19] VITALS: RESP 18
[2017-10-05 10:37] VITALS: BP 158/89; PULSE 70; TEMP 98.2
[2017-10-05 10:40] VITALS: O2SAT 96
--- NOTE | 2017-10-05 13:06 | P.PNCA ---
Subjective Interval history: No events overnight Feels great Physical Exam Vital signs: Vital Signs 10/04/17 13:11 10/04/17 13:12 10/04/17 14:02 Temperature 98.2 F Pulse Rate 69 84 69 Respiratory Rate 20 Blood Pressure 148/87 H Pulse Oximetry 95 10/04/17 16:00 10/04/17 17:00 10/04/17 18:00 Temperature 98.6 F Pulse Rate 85 71 80 Respiratory Rate 20 Blood Pressure 155/81 H Pulse Oximetry 96 10/04/17 19:00 10/04/17 20:00 10/04/17 21:00 Temperature 97.8 F Pulse Rate 78 73 80 Respiratory Rate 20 Blood Pressure 136/76 Pulse Oximetry 98 10/04/17 22:00 10/04/17 23:00 10/05/17 00:00 Temperature 97.9 F Pulse Rate 66 65 66 Respiratory Rate 16 Blood Pressure 129/73 Pulse Oximetry 97 10/05/17 01:00 10/05/17 02:00 10/05/17 03:00 Temperature Pulse Rate 68 66 64 Respiratory Rate Blood Pressure Pulse Oximetry 10/05/17 04:00 10/05/17 05:00 10/05/17 06:00 Temperature 98.4 F Pulse Rate 68 68 72 Respiratory Rate 12 Blood Pressure 145/73 H Pulse Oximetry 97 10/05/17 08:00 10/05/17 09:00 10/05/17 09:20 Temperature 98.0 F Pulse Rate 79 84 81 Respiratory Rate 18 Blood Pressure 151/89 H Pulse Oximetry 96 10/05/17 10:35 10/05/17 10:40 Temperature 98.2 F Pulse Rate 70 Respiratory Rate 18 Blood Pressure 158/89 H Pulse Oximetry 98 96 Intake & Output 10/04/17 10/05/17 10/05/17 18:59 06:59 18:59 Intake Total 480 / 480 480 / 480 500 / 500 Output Total 300 / 300 0 / 0 Balance 180 / 180 480 / 480 500 / 500 Weight 96 kg Intake: IV 500 / 500 Oral 480 / 480 480 / 480 Output: Urine 300 / 300 Stool 0 / 0 Other: # Voids 1 3 Date of Last Bowel Movement 10/03/17 # Bowel Movements 0 Narrative: GENERAL: 72 yo male, appears in nad. CARDIOVASCULAR: Regular rate and rhythm. RESPIRATORY: No accessory muscle use. Clear to auscultation. Breath sounds equal bilaterally. GASTROINTESTINAL: Abdomen soft, non-tender, nondistended. Hepatic and splenic margins not palpable. MUSCULOSKELETAL: Extremities without clubbing, cyanosis, or edema. No obvious deformities. NEUROLOGICAL: Awake and alert. No obvious cranial nerve deficits. Motor grossly within normal limits. Five out of 5 muscle strength in the arms and legs. Normal speech. PSYCHIATRIC: Appropriate mood and affect; insight and judgment normal. Assessment and Plan - Assessment (1) Hx of CABG Code(s): Z95.1 - Presence of aortocoronary bypass graft Status: Acute (2) CAD (coronary artery disease) Code(s): I25.10 - Atherosclerotic heart disease of jamul coronary artery without angina pectoris Status: Acute (3) Elevated AST (SGOT) Code(s): R74.0 - Nonspecific elevation of levels of transaminase and lactic acid dehydrogenase [LDH] Status: Acute (4) Chest pain Code(s): R07.9 - Chest pain, unspecified Status: Acute (5) H/O ischemic heart disease Code(s): Z86.79 - Personal history of other diseases of the circulatory system Status: Acute (6) Hypertension Code(s): I10 - Essential (primary) hypertension Status: Acute - Plan 1) Atypical chest pain Nuclear stress test showing no ischemia 2) CAD s/p CABG 3) Await echo before discharge 4) Possible gallstone problem? Sudden pain Elevated liver enzymes, etc... 5) No further cardiovascular issues, may discharge from my standpoint after echo read (4) Chest pain Qualifiers: Chest pain type: precordial pain Qualified Code(s): R07.2 - Precordial pain
--- NOTE | 2017-10-05 13:29 | ECHRPT ---
Indication: CHEST PAIN CONCLUSIONS The left ventricular systolic function is hyperdynamic with an estimated ejection fraction in the ra nge of 65- 70%. Normal left ventricular size. Wall thickness is normal. No regional wall motion abnormalities are present. There is trace tricuspid valve regurgitation. The estimated pulmonary arterial pressure is 29.9 mmHg. BP: / HR: Rhythm: Sinus MEASUREMENTS (Male / Female) Normal Values Technical Quality:Fair 2D ECHO LVOT Diameter 1.9 cm LV Ejection Fraction MOD 4C 66.7 % LV Ejection Fraction 4C AL 67.7 % M-MODE Aortic Root Diameter MM 2.8 cm LA Systolic Diameter MM 3.9 cm LA Ao Ratio MM 1.4 AV Cusp Separation MM 2.2 cm DOPPLER AV Peak Velocity 136.0 cm/s AV Peak Gradient 7.4 mmHg LVOT Peak Velocity 105.0 cm/s LVOT Peak Gradient 4.4 mmHg AV Area Cont Eq pk 2.2 cm MV Area PHT 3.0 cm Mitral E Point Velocity 73.1 cm/s Mitral A Point Velocity 100.0 cm/s Mitral E to A Ratio 0.7 LV E' Lateral Velocity 11.9 cm/s Mitral E to LV E' Lateral Ratio 6.1 LV E' Septal Velocity 7.6 cm/s Mitral E to LV E' Septal Ratio 9.6 TR Peak Velocity 223.0 cm/s TR Peak Gradient 19.9 mmHg Right Atrial Pressure 10.0 mmHg Pulmonary Artery Systolic Pressu 29.9 mmHg Right Ventricular Systolic Press 29.9 mmHg PV Peak Velocity 77.4 cm/s PV Peak Gradient 2.4 mmHg FINDINGS LEFT VENTRICLE The left ventricular systolic function is hyperdynamic with an estimated ejection fraction in the ra nge of 65- 70%. Normal left ventricular size. Wall thickness is normal. No regional wall motion abnormalities are present. RIGHT VENTRICLE Normal right ventricular size and systolic function. LEFT ATRIUM The left atrial size is normal. RIGHT ATRIUM The right atrial size is normal. ATRIAL SEPTUM Normal atrial septal thickness without atrial level shunting by limited color doppler interrogation. AORTA The aortic root and proximal ascending aorta are normal in size on limited imaging. MITRAL VALVE Structurally normal mitral valve. No mitral valve stenosis or regurgitation. AORTIC VALVE Trileaflet aortic valve. No aortic valve stenosis or regurgitation. TRICUSPID VALVE Structurally normal tricuspid valve. There is trace tricuspid valve regurgitation. The estimated pulmonary arterial pressure is 29.9 mmHg. PULMONARY VALVE No pulmonary valve regurgitation or stenosis. VESSELS The inferior vena cava is normal in size. PERICARDIUM No pericardial effusion. Norbert Morse MD (Electronically Signed) Final Date:05 October 2017 13:28
[2017-10-05 14:36] LABS: Hepatitis A IgM Antibody Nonreactive (Nonreactive)
[2017-10-05 14:37] LABS: Hepatitits B Surface Antigen Nonreactive (Nonreactive)
--- NOTE | 2017-10-07 | P.DS ---
Date of admission: 10/04/17 05:50 Primary care physician: No Primary Care Physician Brief History from admission: 72-year-old male presents to the emergency department by private transportation for complaint of 2 days of retrosternal chest pain that radiates into his neck that is similar to indigestion. Patient states he has had these symptoms before associated with a myocardial infarction and bypass surgery. Patient underwent CABG March 2017. Patient states over the past several nights she has been having intermittent diaphoresis in the past 2 days has had retrosternal chest pain that feels like indigestion 10/10 intensity radiating to his neck with associated episodes of shortness of breath nausea and diaphoresis. Presently patient denies any shortness of breath sweats or nausea however does complain of 10/10 chest pain. Patient takes aspirin daily takes no other blood thinning agents and is on multiple medications for blood pressure management dyslipidemia and antianginal medications. Diabetes as well as antianginal medications. Patient is unable to identify exacerbating or alleviating factors. Says symptoms are similar when he had CABG. DS: Diagnosis - Discharge Diagnosis (1) CAD (coronary artery disease) Status: Acute (2) Chest pain Status: Acute (3) Elevated AST (SGOT) Status: Acute (4) H/O ischemic heart disease Status: Acute (5) Hx of CABG Status: Acute (6) Hypertension Status: Acute DS: Summary Hospital Course: DC date: 10/06/17 72-year-old male presented to ED for eval of chest pain described as indigestion 10/10 intensity. Patient has a known history of CAD previous myocardial infarction and CABG over the past 2 days with persistent intermittent pain since midnight; patient placed on monitor worker with continuous pulse oximetry IV access obtain EKG performed shows sinus rhythm no acute ST elevation or injury pattern or ectopy; patient administered aspirin 162 mg by mouth as well as sublingual nitroglycerin ordered every 5 minutes; 0.4 mg to be administered for chest pain or blood pressure at rest and to hold for chest pain-free or 100 mmHg systolic. Chest pain with h/o CAD, previous [place] and CABG ASA Received morphine prn Received Nitropaste 1 inch CTA thoracic and abdominal aorta ordered reviewed no dissection or acute process. Medical records from [facility] have been requested for cardiac catheterization report and CABG report. Normal stress test ECHO with normal EF Cleared by cardiology for DC Transaminitis Patient denies EtOH use Will repeat labs tomorrow CT A/P no acute findings Repeat LFTs improved. Patient to follow up with GI as OP DM2 accuchecks , ISS Restart home meds as appropriate Discussed the nurse, Dr. Reynoso cardiology. - Time Spent with Patient Total time spent providing and/or coordinating discharge services: Greater than 30 minutes Exam Narrative: GENERAL: 72 yo male, appears in nad. CARDIOVASCULAR: Regular rate and rhythm. RESPIRATORY: No accessory muscle use. Clear to auscultation. Breath sounds equal bilaterally. GASTROINTESTINAL: Abdomen soft, non-tender, nondistended. Hepatic and splenic margins not palpable. MUSCULOSKELETAL: Extremities without clubbing, cyanosis, or edema. No obvious deformities. NEUROLOGICAL: Awake and alert. No obvious cranial nerve deficits. Motor grossly within normal limits. Five out of 5 muscle strength in the arms and legs. Normal speech. PSYCHIATRIC: Appropriate mood and affect; insight and judgment normal. Results Procedures completed during hospitalization: no procedures - Impressions ITS Impressions Myocardial Perfusion Scan Nuc Med 10/04/17 00:00 CONCLUSION: 1. No fixed or reversible wall defect to suggest ischemia or infarction. 2. Normal wall motion and calculated ejection fraction. Chest X-Ray 10/04/17 02:39 CONCLUSION: Clear lungs. Thoracic Aorta CT 10/04/17 03:23 CONCLUSION: 1. No evidence for aortic dissection or aneurysm. 2. No inflammatory changes are seen in the abdomen or pelvis. 3. Nonobstructing renal calculi, and bilateral renal cysts. Discharge Plan - Discharge Disposition Patient Disposition: 01 Discharge Home - Discharge Condition Condition: Stable - Discharge Order Discharge Orders: Discharge Order (Routine); Ordered 10/05/17 Ordered By: Alisson Suarez - Physicians Team Primary Care Provider: Primary Care Sophie,Joan Attending Provider: Alisson Suarez Other Providers: Yanely Ny ; Santi Reynoso DO
== END 2017-10-05 13:51 | disposition home or self-care (01) ==
LOC: HCPC 01:50 → NEDA 01:50 → NEPC 01:50 → NEDA 12:35 → HCPC 12:58
PROVIDERS: ADMIT Hospitalist; ATTEND Hospitalist